=== PATIENT | male | born 1970 | race Caucasian/White ===

== ENCOUNTER 2021-04-29 16:22 | Inpatient (IN) | payer BC ==
[~2021-04-29] VITALS: Ht 170.2 cm; Wt 141.1 kg
[2021-04-29] MEDS ORDERED: ceFAZolin SOD 2 GM in IV 1 EA IV ONE (17:45)
[2021-04-29] MEDS ORDERED: VANCOMYCIN HCL 2,000 MG in IV FLUID PLACE HOLDER 1 EA IV ONE (17:45)
[2021-04-29] MEDS ORDERED: VANCOMYCIN HCL 1,000 MG, VIAL MATE ADAPTER 1 EACH in NS 250 ML IV ONE ×2 (17:55→19:00)
--- NOTE | 2021-04-29 18:16 | REP ---
INDICATION: R/O DVT. COMPARISON: None. TECHNIQUE: Right {lower extremity duplex venous scanning is performed from the groin to the ankle level. FINDINGS: The deep veins are anechoic and fully compressible from the groin to the popliteal fossa in the right lower extremity. Color flow imaging is homogeneous. Spectral Doppler interrogation demonstrates intact respiratory variation in flow and normal manual augmentation of flow. There is no evidence of deep vein thrombosis above the knee. There is no evidence of DVT in the visualized calf veins. Doppler interrogation of the contralateral common femoral vein shows normal symmetric respiratory phasicity. IMPRESSION: No evidence of DVT in the right lower extremity femoropopliteal veins. No DVT in the visible portions of the calf veins. <Electronically signed by Srini Brunner > 04/29/21 [id number]
[2021-04-29 18:19] LABS: HEMATOCRIT 40.7 % (42.0-52.0); HEMOGLOBIN 13.1 g/dl (13.5-17.5); MEAN CORPUSCULAR HEMOGLOBIN 30.2 pg (27.0-33.0); MEAN CORPUSCULAR HGB CONC 32.2 g/dl (32.0-36.5); MEAN CORPUSCULAR VOLUME 93.8 fl (80.0-96.0); PLATELET COUNT, AUTOMATED 256 10^3/uL (150-450); RED BLOOD COUNT 4.34 10^6/uL (4.30-6.10)
[2021-04-29 18:24] LABS: WHITE BLOOD COUNT 20.4 10^3/uL (4.0-10.0)
[2021-04-29 18:42] LABS: ERYTHROCYTE SEDIMENTATION RATE 93 mm/hr (0-20)
[2021-04-29 18:44] LABS: ALBUMIN 2.9 GM/DL (3.2-5.2); BILIRUBIN,DIRECT 0.4 MG/DL (0.0-0.2); BILIRUBIN,TOTAL 0.8 MG/DL (0.2-1.0); C REACTIVE PROTEIN QUANTITATIV 14.9 MG/DL (0.00-0.30); TOTAL PROTEIN 7.8 GM/DL (6.4-8.2)
[2021-04-29 19:02] LABS: BASOPHILS 2 % (0-1); EOSINOPHILS 1 % (0-3); LYMPHOCYTES 11 % (16-44); METAMYELOCYTES 3 % (0-0); MONOCYTES 6 % (0-5); NEUTROPHILS 72 % (28-66)
--- NOTE | 2021-04-29 19:04 | REPVR ---
PROCEDURE INFORMATION: Exam: XR Right Foot Exam date and time: 04/29/2021 6:18 PM Age: 51 years old Clinical indication: Other: Leg problem; Additional info: Stepped on glass TECHNIQUE: Imaging protocol: XR Right foot. Views: 3 or more views. COMPARISON: US Duplex, Ext,LOWER veins,unilat RIGHT 04/29/2021 5:49 PM FINDINGS: Bones/joints: Mild degenerative changes in the interphalangeal joints and the Lisfranc joints. Degenerative changes dorsal midfoot. Retrocalcaneal insertional enthesophyte. Soft tissues: There is a small linear density demonstrated in the plantar soft tissues lateral aspect of the foot may represent a small shard of glass depending on site of injury. Soft tissue edema at the level of the ankle. IMPRESSION: 1. There is a small linear density demonstrated in the plantar soft tissues lateral aspect of the foot may represent a small shard of glass depending on site of injury. 2. Mild degenerative changes. Otherwise unremarkable. Electronically signed by: Patrick Kinney On 04/29/2021 19:04:21 PM
[2021-04-29 19:05] LABS: PLATELET ESTIMATE NORMAL (NORMAL)
[2021-04-29 21:33] LABS: CHOLESTEROL RISK RATIO 5.155 (<5); THYROID STIMULATING HORMONE 1.24 uIU/ML (0.358-3.740)
[2021-04-29 21:35] LABS: HEMOGLOBIN A1c 5.3 %
--- NOTE | 2021-04-29 21:57 | HPEPDOC ---
[facility] Medical History & Physical Date of Admission Apr 29, 2021 Date of Service: Apr 29, 2021 History and Physical CHIEF COMPLAINT: "I stepped on glass 2 weeks ago.now my leg is red and painful." HISTORY OF PRESENT ILLNESS: 51-year-old male with history of morbid obesity BMI 46.4, alcoholic uses 3-5 beers 25 ounces daily, previous smoker 2 packs a day from the age of 14, quit 12 years ago, has not seen a physician in many years presents to [facility] minor treatment with complaints of pain in the right lower extremity redness and swelling that woke him up on Friday.patient stepped on glass at home 2 weeks ago when he broke a glass which shattered on the floor. He felt sharp objects in his right foot and tried to "dig it out.". He soaked his foot in hot water and Epson salt for about 30 minutes multiple times for 3 days and tried to squeeze it out like a "pimple." "I was bleeding everywhere." He thought he had taken all the glass out, and was able to walk without any problems until this Friday when he woke up with 10 out of 10 pain. He borrowed 2 Austin's from his mother but the pain continued . on the right leg had worsening redness swelling and pain with difficulty ambulating, prompting him to come to the emergency room to be evaluated. Patient denies any fever but he says that he has had chills on and off for the past few days. In the emergency room patient was found to be septic with white count of 20,000 and tachycardic with heart rate of 95 bpm. Patient initially refused admission because he was concerned about his "bad insurance from [employer]," and "not being able to vape." His father came to the ER to convince him and he has agreed to be admitted for IV antibiotics and evaluation of the foreign body in his right foot by orthopedic surgeon Dr. Gutierrez. PAST MEDICAL HISTORY: Otitis media as a child PAST SURGICAL HISTORY: Ear tubes SOCIAL HISTORY: Lives with his parents full code Works at [employer] previous smoker 2 packs a day since age of 14 quit 17 years ago Vapes alcohol abuse with 3-5 beers every night 25 ounces of beer, no recreational drug use FAMILY HISTORY: Mother father alive and well unknown medical problems ALLERGIES: Please see below. REVIEW OF SYSTEMS: 10 point review of systems negative aside from positive findings in HPI HOME MEDICATIONS: Please see below. PHYSICAL EXAMINATION: VITAL SIGNS: See below GENERAL APPEARANCE: No distress awake alert oriented to person place and time answering questions appropriately no pallor icterus cyanosis no jaundice HEENT: Extraocular muscles intact normocephalic atraumatic neck is supple full range of motion no cervical lymphadenopathy thyromegaly moist mucous membranes CARDIOVASCULAR: S1-S2 sinus rhythm no murmurs rubs or gallops. LUNGS: Air entry is equal bilaterally clear to auscultation no wheezing rales or rhonchi ABDOMEN: Obese soft nontender nondistended positive bowel sounds x4 quadrants no rebound or guarding EXTREMITIES: Right lower extremity has significant erythema from the anterior thigh ,the entire leg and dorsal aspect of the foot. Plantar aspect of the right foot is tender without gross foreign object. Warm to touch tender positive edema LABORATORY DATA: See below. IMAGING: See below MICROBIOLOGY: Please see below. ASSESSMENT: 51-year-old morbidly obese male with BMI of 46.4 with alcohol tobacco abuse presents to the emergency room with right lower extremity cellulitis after stepping on broken glass 2 weeks ago. Patient will be admitted as an inpatient for 2 midnights for the following acute issues: Sepsis -Patient is found to have white count of 20,000 tachycardic with heart rate of 95 with a right lower extremity cellulitis -Continue with IV Vanco check MRSA screen there is no obvious abscess or purulence but will try to get a wound culture of the right plantar foot -De-escalate antibiotics depending on wound culture results Right lower extremity cellulitis with right foot foreign body -IV Vanco for now de-escalate antibiotics to pending on the wound culture results -Check MRSA screen -Ultrasound had no abscess -X-ray was not concerning for osteomyelitis -Orthopedic surgeon Dr. Jessu has been consulted regarding the right foot foreign body Morbid obesity BMI 46.4 -Check nocturnal oximetry to rule out obstructive sleep apnea -At increased risk of respiratory acidosis due to possible obesity hypoventilation syndrome probable obstructive sleep apnea and opioid use for pain control -Check hemoglobin A1c thyroid function test lipid panel Alcohol abuse -[facility] protocol -Multivitamin thiamine folate Tobacco abuse -Cessation counseling -Needed nicotine gum Diet: Low-fat low-cholesterol CODE STATUS: Full code DVT prophylaxis May start on Lovenox subcu after evaluation by orthopedic surgery if no plans for procedure Vital Signs Vital Signs Date Time Temp Pulse Resp B/P (MAP) Pulse Ox O2 Delivery O2 Flow Rate FiO2 04/29/21 16:39 04/29/21 16:23 99.2 95 20 97 Room Air Laboratory Data Labs 24H Laboratory Tests 2 04/29/21 18:06: Immature Granulocyte % (Auto) , Neutrophils (%) (Auto) , Nucleated Red Blood Cells % (auto) 0.0, Neutrophils 72H, Band Neutrophils 5, Lymphocytes (Manual) 11L, Monocytes (Manual) 6H, Eosinophils (Manual) 1, Basophils (Manual) 2H, Metamyelocytes 3H, Platelet Estimate NORMAL, Erythrocyte Sedimentation Rate 93H, Estimated Mean Plasma Glucose 105, Hemoglobin A1c 5.3, Lactic Acid Level 0.8, Total Bilirubin 0.8, Direct Bilirubin 0.4H, Aspartate Amino Transf (AST/SGOT) 5 8H, Alanine Aminotransferase (ALT/SGPT) 103H, Alkaline Phosphatase 172H, C- Reactive Protein, Quantitative 14.90H, Total Protein 7.8, Albumin 2.9L, Albumin/Globulin Ratio 0.6, Triglycerides Level 149, Total Cholesterol 232H, LDL Cholesterol 157H, Non-HDL Cholesterol (LDL + VLDL) 187, Total HDL Cholesterol 45, Cholesterol/HDL Ratio 5.155H, Thyroid Stimulating Hormone (TSH) 1.240 04/29/21 20:40: POC Glucose (Misc Panel) 93, POC Sodium (Misc Panel) 141, POC Potassium (Misc Panel) 3.6, POC Chloride (Misc Panel) 100, POC Total CO2 (Misc Panel) 29.0H, POC Blood Urea Nitrogen (Misc Panel 12, POC Ionized Calcium (Misc Panel) 4.7, POC Creatinine (Misc Panel) 0.9, POC Hematocrit (Misc Panel) 40.0 CBC/BMP Laboratory Tests 04/29/21 18:06 Microbiology Microbiology 04/29/21 Blood Culture, Received Pending Home Medications No Active Prescriptions or Reported Meds Allergies Coded Allergies: No Known Drug Allergies (Verified Allergy, Unknown, 04/29/21) A-FIB/CHADSVASC A-FIB History Current/History of A-Fib/PAF?: No Current PO Anticoag Therapy: No Age/Risk Factor Scoring CHADSVASC: CHADSVASC Response (Comments) Value Age Risk Factor Age < 65 years old 0 Gender Risk Factor Male 0 Hx of CHF No 0 Hx of HTN No 0 Hx of Stroke/TIA/or VTE No 0 Hx of Diabetes No 0 Hx of Vascular Disease No 0 Total 0 Treatment Treatment ordered: NONE ABDOULAYE SANDOVAL MD Apr 29, 2021 21:57
[2021-04-29] MEDS ORDERED: NORCO, ANEXSIA 5/325MG TABLET (HYDROcodone/ACETAMINOPHEN) PO PRN (22:00)
[2021-04-29] MEDS ORDERED: LORazepam 2 MG TAB PO PRN (22:00)
[2021-04-29] MEDS ORDERED: NALOXONE INJ 0.4MG/1ML VIAL (J2310 PER 1MG) IV PRN (22:00)
[2021-04-29] MEDS ORDERED: MORPHINE 4 MG/ML 1ML VIAL/SYRINGE (J2270) IV PRN (22:00)
[2021-04-29] MEDS ORDERED: NICOTINE POLACRILEX 2 MG GUM PO PRN (22:00)
[2021-04-29] MEDS ORDERED: flumazeniL 0.5 MG/5 ML VIAL IV PRN (22:00)
[2021-04-29] MEDS ORDERED: ACETAMINOPHEN 500 MG TAB PO PRN (22:05)
[2021-04-29] MEDS ORDERED: ACETAMINOPHEN TAB 650MG DOSE (2X325MG) PO PRN (22:15)
[2021-04-29] MEDS ORDERED: KETOROLAC 30 MG/ML 1ML VIAL IV ONE (22:30)
[2021-04-29] MEDS: THIAMINE 100 MG TAB PO SCH (22:44)
[2021-04-29 23:22] LABS: RSV AMPLIFICATION NEGATIVE (NEGATIVE)
--- NOTE | 2021-04-30 00:02 | REPVR ---
PROCEDURE INFORMATION: Exam: XR Right Foot Exam date and time: 04/29/2021 10:57 PM Age: 51 years old Clinical indication: Condition or disease; Other: Removal of glass; Additional info: Removed glass TECHNIQUE: Imaging protocol: XR Right foot. Views: 3 or more views. COMPARISON: CR Foot, complete RIGHT 04/29/2021 6:08 PM FINDINGS: Bones/joints: Normal hindfoot alignment. No evidence of tarsal coalition. No acute fracture or stress fracture. Lisfranc and midfoot alignment is normal. Mild polyarticular degenerative changes. Soft tissues: Diffuse soft tissue swelling is present. No residual foreign body over the plantar soft tissues IMPRESSION: Soft tissue swelling of the forefoot, but with removal of plantar soft tissue foreign body. No residual foreign body or concerning osseous process Electronically signed by: Seth Patel On 04/30/2021 00:01:27 AM
[2021-04-30] MEDS: VANCOMYCIN HCL 750 MG, VIAL MATE ADAPTER 1 EACH in NS 250 ML IV SCH ×4 (05:00→18:11)
[2021-04-30] MEDS: HEPARIN SOD (PORCINE) 5000UNITS/ML 1ML VIAL/SYRINGE SQ SCH ×3 (05:08→21:07)
[2021-04-30 08:05] LABS: HEMOGLOBIN 12.2 g/dl (13.5-17.5); MEAN CORPUSCULAR HEMOGLOBIN 30.1 pg (27.0-33.0); MEAN CORPUSCULAR HGB CONC 32.1 g/dl (32.0-36.5); MEAN CORPUSCULAR VOLUME 93.8 fl (80.0-96.0); PLATELET COUNT, AUTOMATED 249 10^3/uL (150-450); RED BLOOD COUNT 4.05 10^6/uL (4.30-6.10)
[2021-04-30 08:08] LABS: WHITE BLOOD COUNT 16.8 10^3/uL (4.0-10.0)
[2021-04-30 08:20] VITALS: BP 147/87
[2021-04-30 08:30] VITALS: BP 147/87
[2021-04-30 08:33] LABS: BLOOD UREA NITROGEN 15 MG/DL (7-18); CALCIUM LEVEL 8.1 MG/DL (8.5-10.1); CARBON DIOXIDE LEVEL 28 MEQ/L (21-32); CHLORIDE LEVEL 104 MEQ/L (98-107); CHOLESTEROL LEVEL 209 MG/DL (<200); CHOLESTEROL RISK RATIO 5.648 (<5); FREE THYROXINE INDEX 3.4 % (1.4-3.8); GLOMERULAR FILTRATION RATE > 60.0 (>56); GLUCOSE, FASTING 106 MG/DL (70-100); HDL CHOLESTEROL 37 MG/DL (>40); LDL CHOLESTEROL 143 MG/DL (<100); NON-HDL-C 172 MG/DL; POTASSIUM SERUM 4.3 MEQ/L (3.5-5.1); SODIUM LEVEL 138 MEQ/L (136-145); T UPTAKE 34 % (33-40); THYROID STIMULATING HORMONE 0.669 uIU/ML (0.358-3.740); THYROXINE (T4) 10.1 UG/DL (4.5-12.0); TRIGLYCERIDES LEVEL 145 MG/DL (<150)
[2021-04-30 09:00] LABS: LYMPHOCYTES 10 % (16-44); METAMYELOCYTES 1 % (0-0); MONOCYTES 4 % (0-5); NEUTROPHILS 82 % (28-66)
[2021-04-30] MEDS: FOLIC ACID 1 MG TAB PO SCH (09:00)
[2021-04-30] MEDS: THIAMINE 100 MG TAB PO SCH ×2 (09:00→20:13)
[2021-04-30] MEDS: MULTIVITAMINS/MINERALS THERAP 1 TAB PO SCH (09:00)
[2021-04-30] MEDS ORDERED: VANCOMYCIN HCL 1,000 MG, VIAL MATE ADAPTER 1 EACH in NS 250 ML IV SCH (09:00)
[2021-04-30 09:01] LABS: ANISOCYTOSIS 1+; TOXIC GRANULATION 1+
[2021-04-30 09:02] LABS: PLATELET ESTIMATE NORMAL (NORMAL)
--- NOTE | 2021-04-30 09:19 | ER ---
ER CONSULTATION DATE: 04/29/2021 CONSULTING SERVICE: Orthopedic surgery. CONSULTING PHYSICIAN: Codey Gutierrez MD HISTORY OF PRESENT ILLNESS: This is a 51-year-old male with diagnosis of right leg cellulitis with concomitant residual glass in his right foot. The patient presented to [facility] Emergency Department for increasing right leg cellulitis, 2/3 circumferential in nature, about the middle aspect of his right leg. The patient also had history of trying to remove the glass from the heel pad of his right foot. He stepped on glass two weeks prior, has poor foot care and has been walking without shoes with retained glass. Patient has past medical history of morbid obesity, BMI of 46.4, chronic alcohol use of 6-10 beers daily, previous smoker of two packs a day from the age of 14, quit 12 years prior, has poor medical maintenance. He has not seen a physician in several years. The patient has been "trying to dig out the glass from my foot" where he has been soaking his foot in water and epsom salts for about 30 minutes multiple times for three days and trying to squeeze out the glass. The patient has been using Startex pain medication from his mother. For the last three days he has had increasing cellulitis about the right leg. In the emergency room the patient was found to be septic with white count of 20,000, tachycardic with heart rate of 95 beats per minute. The patient was agreed to be admitted by the internal medicine team for IV antibiotics and evaluation by myself. Orthopedic surgery was consulted for glass removal from his right foot. MEDICAL HISTORY: 1. Otitis media as a child. 2. Suspected diabetes mellitus. SURGICAL HISTORY: Ear tubes. FAMILY HISTORY: Mother and father alive, unknown medical history. SOCIAL HISTORY: Lives with his parents, works at [employer]. Previous two pack a day smoker, quit 12 years prior. 6-10 beers nightly. Denies IV drug use. ALLERGIES: Please see Hospitalist note. REVIEW OF SYSTEMS: 14-point review of systems was negative unless otherwise described in HPI above. CURRENT MEDICATIONS: Patient denies. PHYSICAL EXAMINATION: GENERAL: Alert and oriented to person, time and place. RIGHT LOWER EXTREMITY: The patient had significant cellulitis about the right leg which was approximately 75% circumferential about the anteromedial and posterior aspects of the patient's right leg. There were no breaks in the skin present on examination. This was marked out with a surgical marker. He also had a 5 mm laceration over the heel pad of his right foot with retained glass with scant amount of purulent discharge from the heel pad. He is otherwise neurovascularly intact to the right lower extremity with 5/5 strength of EHL, FHL, tibialis anterior, gastrocnemius and peroneal musculature. Sensation was intact to light touch to the deep and superficial peroneal, sural, saphenous and tibial nerve distributions of the right leg. He had a palpable dorsalis pedis and posterior tibial arterial pulse, brisk cap refill to the digits. IMAGING DATA: Radiographs of the right foot demonstrate retained glass within the heel pad which is very superficial. Right leg x-rays are pending. PROCEDURE: The patient verbally consented to removal of glass from the heel pad of his right foot. After consenting the patient verbally for risk of nerve damage, infection, blood loss, I used a hemostat to remove the glass from his heel pad of his foot which was visible requiring no dissection. IMPRESSION: 51-year-old male with right leg cellulitis being worked up for diabetes mellitus and other medical comorbidities. He had retained glass in his right foot which was removed in the emergency department. PLAN: At this point the glass has been removed from his foot. Whether this is related to his right leg cellulitis is undetermined. He currently has cellulitis of the right leg which will be managed by internal medicine with IV antibiotics. Surgical marker was used to kunal out the edges of the cellulitis. I recommend trending the patient's laboratory values to include white blood cell, ESR, CRP and daily clinical exams by internal medicine to ensure that the IV antibiotics are effective in treating his cellulitis. He is also being worked up for diabetes with pending HbA1C labs. I recommend right leg radiographs at this point in time to ensure that there is no air tracking up his leg to confirm that he does not have necrotizing fasciitis. While it is very unlikely that this patient has necrotizing fasciitis his number one risk would be that his cellulitis would advance to necrotizing fasciitis. If this is the case he may require emergent surgery. Thank you for this interesting consult. I will continue to be in communication with the Hospitalist if they need guidance with any additional orthopedic issues.
[2021-04-30 10:47] LABS: HEMOGLOBIN A1c 5.4 %
--- NOTE | 2021-04-30 13:52 | IPNPDOC ---
Text Note Date of Service The patient was seen on 04/30/21. NOTE Subjective: -Doing well, pain improved, leg edema and erythema beginning to improve, no complaints otherwise, trying to keep his leg up. Objective: VITAL SIGNS: See below GENERAL APPEARANCE: NAD, obese HEENT: NCAT, EOMI, MMM CARDIOVASCULAR: RRR, no m/r/g LUNGS: CTAB, no noted crackles, wheezing or rhonchi, breathing comfortably on room air ABDOMEN: Obese soft nontender nondistended, normoactive bowel sounds x4 quadrants, no rebound or guarding EXTREMITIES: Right lower extremity has significant erythema from the anterior thigh ,the entire leg and dorsal aspect of the foot that is now beginning to show evidence of slight recession. Plantar aspect of the right foot is mildly tender at point of entry where glass was removed. Edematous RLE. LLE without edema LABORATORY DATA: Reviewed IMAGING: See below MICROBIOLOGY: Please see below. ASSESSMENT: 51-year-old morbidly obese M with BMI of 46.4 with alcohol and tobacco abuse who was admitted for right lower extremity cellulitis after stepping on broken glass 2 weeks ago. Sepsis -Patient was found to have white count of 20,000 tachycardic with heart rate of 95 with a right lower extremity cellulitis -Continue with IV Vanco -Check MRSA screen there is no obvious abscess or purulence Right lower extremity cellulitis 2/2 right foot foreign body point of entry -IV Vanco for now, de-escalate antibiotics if MRSA negative -Ultrasound showed no abscess -X-ray was not concerning for osteomyelitis and foreign body was fully removed -Orthopedic surgeon Dr. Gutierrez was consulted, no surgical intervention indicate d Morbid obesity BMI 46.4 -At increased risk of respiratory acidosis due to possible obesity hypove ntilation syndrome probable obstructive sleep apnea -f/u hemoglobin A1c thyroid function test lipid panel -Refer back to PCP for obesity management Alcohol abuse -[facility] protocol -Multivitamin thiamine folate Tobacco abuse -Cessation counseling -Nicotine gum Diet: Low-fat low-cholesterol CODE STATUS: Full code DVT prophylaxis: lovenox VS,Fishbone, I+O VS, Fishbone, I+O Laboratory Tests 04/29/21 18:06 04/30/21 07:41 Vital Signs Date Time Temp Pulse Resp B/P (MAP) Pulse Ox O2 Delivery O2 Flow Rate FiO2 04/30/21 08:30 97.6 72 20 147/87 (851) 97 Room Air I&O- Last 24 Hours up to 6 AM 04/30/21 06:00 Intake Total 540 ml Balance 540 ml SCOTT WALLACE MD Apr 30, 2021 13:52
[2021-04-30 14:00] VITALS: BP 144/91
[2021-04-30] MEDS: IBUPROFEN 400MG TAB PO PRN (17:00)
[2021-04-30 22:00] VITALS: BP 155/88
[2021-05-01] MEDS: VANCOMYCIN HCL 750 MG, VIAL MATE ADAPTER 1 EACH in NS 250 ML IV SCH ×2 (04:30→05:31)
[2021-05-01] MEDS: HEPARIN SOD (PORCINE) 5000UNITS/ML 1ML VIAL/SYRINGE SQ SCH (05:31)
[2021-05-01] MEDS: IBUPROFEN 400MG TAB PO PRN (05:36)
[2021-05-01 05:47] VITALS: BP 145/83
[2021-05-01 06:00] VITALS: BP 145/83
[2021-05-01 06:48] LABS: HEMATOCRIT 38.4 % (42.0-52.0); HEMOGLOBIN 12.2 g/dl (13.5-17.5); MEAN CORPUSCULAR HGB CONC 31.8 g/dl (32.0-36.5); MEAN CORPUSCULAR VOLUME 94.6 fl (80.0-96.0); PLATELET COUNT, AUTOMATED 269 10^3/uL (150-450); RED BLOOD COUNT 4.06 10^6/uL (4.30-6.10)
[2021-05-01 06:50] LABS: WHITE BLOOD COUNT 14.8 10^3/uL (4.0-10.0)
[2021-05-01 06:59] LABS: ANISOCYTOSIS 1+; ATYPICAL LYMPH 1 % (0-5); EOSINOPHILS 1 % (0-3); LYMPHOCYTES 17 % (16-44); METAMYELOCYTES 2 % (0-0); MONOCYTES 9 % (0-5); NEUTROPHILS 68 % (28-66); PLATELET ESTIMATE NORMAL (NORMAL)
[2021-05-01 07:07] LABS: BLOOD UREA NITROGEN 12 MG/DL (7-18); CALCIUM LEVEL 8.1 MG/DL (8.5-10.1); CARBON DIOXIDE LEVEL 30 MEQ/L (21-32); CHLORIDE LEVEL 106 MEQ/L (98-107); CREATININE FOR GFR 0.76 MG/DL (0.70-1.30); GLOMERULAR FILTRATION RATE > 60.0 (>56); GLUCOSE, FASTING 106 MG/DL (70-100); POTASSIUM SERUM 4.1 MEQ/L (3.5-5.1); SODIUM LEVEL 140 MEQ/L (136-145)
[2021-05-01] MEDS: THIAMINE 100 MG TAB PO SCH (08:30)
[2021-05-01] MEDS: FOLIC ACID 1 MG TAB PO SCH (08:30)
[2021-05-01] MEDS: MULTIVITAMINS/MINERALS THERAP 1 TAB PO SCH (08:30)
[2021-05-01] MEDS ORDERED: FOLI1TAB11 PO (13:16)
[2021-05-01] MEDS ORDERED: VITMTA PO (13:16)
[2021-05-01] MEDS ORDERED: THIA100TA PO ×2 (13:16)
[2021-05-01] MEDS ORDERED: IBUP-1114 PO (13:16)
[2021-05-01 14:00] VITALS: BP 144/91
[2021-05-01] MEDS ORDERED: VANCOMYCIN HCL 1,000 MG, VIAL MATE ADAPTER 1 EACH in NS 250 ML IV SCH (15:00)
--- NOTE | 2021-05-03 12:46 | DS.PDOC ---
Discharge Summary General Date of Admission Apr 29, 2021 at 21:01 Date of Discharge 05/01/21 Discharge Summary PROCEDURES PERFORMED DURING STAY: Removal of foreign body from the heel of right foot DISCHARGE DIAGNOSES: Right lower extremity cellulitis Sepsis Morbid obesity with BMI of 48.7 COMPLICATIONS/CHIEF COMPLAINT: Cellulitis R Leg,Foreign Body In R Foot W/Infectio. HOSPITAL COURSE: 51-year-old morbidly obese M with BMI of 46.4 with alcohol and tobacco abuse who was admitted for right lower extremity cellulitis after stepping on broken glass 2 weeks ago. Sepsis Managed with vancomycin in the hospital Then discharged with infusion unit set up for [facility] on 05/02/2021 Right lower extremity cellulitis 2/2 right foot foreign body point of entry Treated in the hospital with Vanco Ultrasound showed no abscess X-ray was not concerning for osteomyelitis and foreign body was fully removed Orthopedic surgeon Dr. Gutierrez was consulted, no surgical intervention indicated Morbid obesity BMI 46.4 Complicating care Alcohol abuse Multivitamin thiamine folate Tobacco abuse Cessation counseling done ALLERGIES: Please see below. PHYSICAL EXAMINATION ON DISCHARGE: VITAL SIGNS: Please see below. GENERAL APPEARANCE: NAD, obese HEENT: NCAT, EOMI, MMM CARDIOVASCULAR: RRR, no m/r/g LUNGS: CTAB, no noted crackles, wheezing or rhonchi, breathing comfortably on room air ABDOMEN: Obese soft nontender nondistended, normoactive bowel sounds x4 quadrants, no rebound or guarding EXTREMITIES: Right lower extremity has significant erythema from the anterior thigh ,the entire leg and dorsal aspect of the foot that is now beginning to show evidence of slight recession. Plantar aspect of the right foot is mildly tender at point of entry where glass was removed. Edematous RLE. LLE without edema LABORATORY DATA: Please see below. ACTIVITY: [As tolerated]. DIET: As tolerated DISPOSITION: Home, Self-Care. DISCHARGE INSTRUCTIONS: Follow-up with PMD in 1 week Come to infusion unit for [facility] infusion on 04/24/2021 DISCHARGE CONDITION: [Stable]. TIME SPENT ON DISCHARGE: 35 minutes. Vital Signs/I&Os Vital Signs Date Time Temp Pulse Resp B/P (MAP) Pulse Ox O2 Delivery O2 Flow Rate FiO2 05/01/21 14:00 98.3 84 18 144/91 (108) 97 Room Air Microbiology Microbiology 04/30/21 Blood Culture - Preliminary, Resulted No Growth after 72 hours. All specime... 04/29/21 Blood Culture - Preliminary, Resulted No Growth after 72 hours. All specime... 04/29/21 Blood Culture - Preliminary, Resulted No Growth after 72 hours. All specime... Discharge Medications Scheduled Folic Acid (Folic Acid) 1 Mg Tablet, 1 MG PO DAILY Multivitamins (Thera M Plus Tablet) 1 Each Tablet, 1 TAB PO DAILY Thiamine Hcl (Vitamin B-1) 100 Mg Tablet, 100 MG PO BID Scheduled PRN Ibuprofen (Ibuprofen) 400 Mg Tablet, 400 MG PO Q8HP PRN for MILD PAIN (PS 1-4) Allergies Coded Allergies: No Known Drug Allergies (Verified Allergy, Unknown, 04/29/21) KARLI NEWMAN MD May 03, 2021 12:46
== END 2021-05-01 14:40 | disposition home or self-care (01) | DRG 720 ==
LOC: M ED 16:22 → M ED INP 21:01 → ENRESERV 04-30 06:04 → M MS5PR 04-30 08:20
PROVIDERS: ADMIT General Practice; ATTEND Internal Medicine
DX: A41.9 Sepsis, unspecified organism (principal); Z68.42 Body mass index [BMI] 45.0-49.9, adult; L03.115 Cellulitis of right lower limb; E66.01 Morbid (severe) obesity due to excess calories; F10.10 Alcohol abuse, uncomplicated; F17.290 Nicotine dependence, other tobacco product, uncomplicated; Z20.822 Contact with and (suspected) exposure to COVID-19; S90.851A Superficial foreign body, right foot, initial encounter; X58.XXXA Exposure to other specified factors, initial encounter; Y92.009 Unspecified place in unspecified non-institutional (private) residence as the place of occurrence of the external cause

== ENCOUNTER 2021-05-02 14:11 | Outpatient (CLI) | payer BC ==
[~2021-05-02] VITALS: Ht 170.2 cm; Wt 141.0 kg
[~2021-05-02 14:11] MED LIST: FOLI1TAB11 PO; IBUP-1114 PO; THIA100TA PO; VITMTA PO
[2021-05-02 14:15] VITALS: BP 168/85
[2021-05-02] MEDS ORDERED: DALBAVANCIN 1,500 MG in D5W 250 ML IV ONE (14:30)
[2021-05-02 16:14] VITALS: BP 167/90
== END 2021-05-02 16:15 | disposition home or self-care (01) ==
LOC: M INFU 14:11
PROVIDERS: ATTEND Internal Medicine Nephrology
DX: L03.90 Cellulitis, unspecified (principal)
CPT/HCPCS: 96365; J0875